=== PATIENT | male | born 1985 | race Caucasian/White ===

== ENCOUNTER 2019-06-18 05:54 | Emergency (ER) | payer BC, OTHER ==
[~2019-06-18] VITALS: Ht 193 cm; Wt 108.8 kg
--- NOTE | 2019-06-18 06:09 | ED GU-Male ---
General Stated Complaint: LEFT SIDE & LEFT TESTICLE PAIN X 2 DAYS Source: patient History of Present Illness Date Seen by Provider: Jun 18, 2019 Time Seen by Provider: 06:04 Initial Comments 34-year-old male presents with pain in his left lower side/abdomen along with pain down to his left testicle. Pain is intermittent on and off for the last testicle for the last couple days. He also has a pain in the left lower quadrant. He denies any fevers or chills. He denies any dysuria. He feels like he was "kicked in the testicle" there is no swelling. He did have some nausea this morning. He reports it has a pain in his testicle and lower abdomen he cannot get comfortable. Allergies and Home Medications Allergies Coded Allergies: promethazine (Verified Allergy, Severe, Anaphylaxis, 06/18/19) Penicillins (Verified Allergy, Unknown, Anaphylaxis, 06/18/19) Home Medications Hydrocodone/Acetaminophen 1 Each Tablet, 1 TAB PO Q6H Prescribed by: CHETAN ALBERTS on 06/18/19 0845 Metoclopramide HCl 10 Mg Tablet, 10 MG PO Q8H Prescribed by: CHETAN ALBERTS on 06/18/19 0843 Sulfamethoxazole/Trimethoprim 1 Each Tablet, 1 EACH PO BID Prescribed by: CHETAN ALBERTS on 06/18/19 0843 Tamsulosin HCl 0.4 Mg Cap, 0.4 MG PO DAILY Prescribed by: CHETAN ALBERTS on 06/18/19 0843 Patient Home Medication List Home Medication List Reviewed: Yes Review of Systems Review of Systems Constitutional: No chills, No fever EENTM: no symptoms reported Respiratory: no symptoms reported Gastrointestinal: abdominal pain (LLQ), nausea Genitourinary: see HPI Past Ogjtccn-Pmlequ-Bngqsz Hx Past Med/Social Hx: Reviewed Nursing Past Med/Soc Hx Patient Social History Recent Foreign Travel: No Contact w/Someone Who Travel: No Physical Exam Vital Signs Vital Signs - First Documented 06/18/19 06/18/19 06:00 08:55 Temp 36.4 Pulse 74 Resp 20 B/P (MAP) 145/100 (115) Pulse Ox 98 O2 Delivery Room Air Capillary Refill : Height, Weight, BMI Height: '" Weight: lbs. oz. 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, alert, normal mood/affect, oriented x 3 Progress/Results/Core Measures Suspected Sepsis SIRS Temperature: Pulse: Respiratory Rate: Blood Pressure / Mean: Results/Orders Lab Results Laboratory Tests Test 06/18/19 06:15 Range/Units Urine Color YELLOW Urine Clarity CLEAR Urine pH 5.5 5-9 Urine Specific [place] >=1.030 1.016-1.022 Urine Protein NEGATIVE NEGATIVE Urine Glucose (UA) NEGATIVE NEGATIVE Urine Ketones NEGATIVE NEGATIVE Urine Nitrite NEGATIVE NEGATIVE Urine Bilirubin NEGATIVE NEGATIVE Urine Urobilinogen 0.2 < = 1.0 MG/DL Urine Leukocyte Esterase NEGATIVE NEGATIVE Urine RBC (Auto) 3+ H NEGATIVE Urine RBC 10-25 H /HPF Urine WBC NONE /HPF Urine Crystals NONE /LPF Urine Bacteria NEGATIVE /HPF Urine Casts NONE /LPF Urine Mucus SMALL H /LPF Urine Culture Indicated NO My Orders Orders - CHETAN ALBERTS L DO Us Scrotum (Testicle) [id number] (06/18/19 06:12) Ua Culture If Indicated (06/18/19 06:12) Ondansetron Injection (Zofran Injectio (06/18/19 06:15) Ns Iv 1000 Ml (Sodium Chloride 0.9%) (06/18/19 06:12) Ed Iv/Invasive Line Start (06/18/19 06:12) Ketorolac Injection (Toradol Injection) (06/18/19 06:12) Abdomen/Kub 1view (06/18/19 06:54) Ct Abd/Pelvis Wo(Kidney Stone) (06/18/19 07:42) Metoclopramide Injection (Reglan Injecti (06/18/19 08:07) Medications Given in ED Current Medications Medications Dose Ordered Sig/Devang Route Start Time Stop Time Status Last Admin Dose Admin Ondansetron HCl 4 mg ONCE ONCE IVP 06/18/19 06:15 06/18/19 06:16 DC 06/18/19 06:31 4 MG Vital Signs/I&O 06/18/19 06/18/19 06:00 08:55 Temp 36.4 Pulse 74 77 Resp 20 16 B/P (MAP) 145/100 (115) 138/76 Pulse Ox 98 O2 Delivery Room Air Room Air Capillary Refill : Progress Note : Time: 11:10 Progress Note Patient with 3 mm kidney stone. I will start him on Flomax, Bactrim along with some pain and nausea medication. I recommended he all Dr. Valdez's office upon discharge to arrange a follow-up time and a recheck of symptoms. Patient is stable and will be discharged home in stable condition Diagnostic Imaging Comments NAME: CONY DAVALOS [facility] REC#: [id number] PT STATUS: REG ER : 1985 PHYSICIAN: CHETAN ALBERTS DO ADMIT DATE: 06/18/19/ER Draft Date of Exam:06/18/19 CT ABD/PELVIS WO(KIDNEY STONE) EXAMINATION: CT Abdomen Pelvis without contrast. TECHNIQUE: Multiple contiguous axial images were obtained through the abdomen and pelvis without the use of intravenous contrast. All CT scans use one or more of the following dose optimizing techniques: automated exposure control, MA and/or KvP adjustment based on a patient size and exam type, or iterative reconstruction. HISTORY: Flank pain. COMPARISON: None available. FINDINGS: Limited views of the lower thorax are unremarkable. The liver is normal without focal lesion. There is no biliary ductal dilation. Gallbladder is normal. Pancreas is normal. Spleen is normal. Adrenal glands are normal. There is a 3 mm obstructing stone in the distal left ureter with mild left-sided hydroureteronephrosis and perinephric and periureteral stranding. There are three additional nonobstructing left renal stones measuring up to 5 mm. The right kidney is normal without stones or hydronephrosis. No suspicious renal lesions are seen. Urinary bladder is normal. Visualized bowel is normal in caliber without obstruction or inflammation. No free fluid or air. No abdominal or pelvic lymphadenopathy. Aorta is normal in caliber without aneurysm. There are no suspicious osseus lesions. IMPRESSION: 1. Obstructing distal left ureteral stone measuring 3 mm with mild left hydroureteronephrosis. 2. Additional nonobstructing left renal stones measuring up to 5 mm . NAME: CONY DAVALOS [facility] REC#: [id number] PT STATUS: REG ER : 1985 PHYSICIAN: CHETAN ALBERTS DO ADMIT DATE: 06/18/19/ER Signed Date of Exam:06/18/19 US SCROTUM (Testicle) [id number] INDICATION: Left-sided testicular and groin pain x2 days. TECHNIQUE: Real-time grayscale sonographic imaging and color vascular evaluation of the scrotum. CORRELATION STUDY: None FINDINGS: RIGHT TESTICLE: 5.1 x 2.7 x 3.2 cm. LEFT TESTICLE: 5.4 x 2.7 x 3.3 cm. The testicles are in normal location and demonstrate homogeneous echotexture. There is vascular flow to the testicles. The epididymides appear unremarkable. Small left-sided hydrocele. No definitive abnormal left inguinal region hernia defect IMPRESSION: 1. Generally unremarkable appearing scrotal ultrasound examination, apart from small left-sided hydrocele. Departure Impression Primary Impression: Left ureteral stone Disposition: HOME, SELF-CARE Condition: Stable Departure-Patient Inst. Referrals: NO,LOCAL PHYSICIAN (PCP) Primary Care Physician YASIR BELL MD Please call upon discharge for follow-up of symptoms Patient Instructions: How to Strain Your Urine, Renal Colic (DC) Add. Discharge Instructions: Please call urologist office upon discharge for an appointment time for follow- up Scripts Hydrocodone/Acetaminophen ([place] 5-325 Tablet) 1 Each Tablet 1 TAB PO Q6H for Pain MDD 10 TABS, #10 TAB Prov: CHETAN ALBERTS DO 06/18/19 Metoclopramide HCl (Reglan) 10 Mg Tablet 10 MG PO Q8H for Nausea/Vomiting, #14 TAB Prov: CHETAN ALBERTS DO 06/18/19 Tamsulosin HCl (Flomax) 0.4 Mg Cap 0.4 MG PO DAILY, #14 CAP Prov: CHETAN ALBERTS DO 06/18/19 Sulfamethoxazole/Trimethoprim (Bactrim Ds Tablet) 1 Each Tablet 1 EACH PO BID, #14 TAB Prov: CHETAN ALBERTS DO 06/18/19 CHETAN ALBERTS DO Jun 18, 2019 06:09
[2019-06-18] MEDS ORDERED: KETOROLAC 30 MG/ML VIAL IVP STA (06:12)
[2019-06-18] MEDS ORDERED: NS IV 1000 ML 1,000 ML IV STA (06:12)
[2019-06-18] MEDS ORDERED: ONDANSETRON 4 MG/2 ML (SDV) Z0FRAN IVP ONE (06:15)
[2019-06-18 07:02] LABS: BILIRUBIN,URINE NEGATIVE (NEGATIVE); CLARITY,URINE CLEAR; COLOR,URINE YELLOW; GLUCOSE, URINE (UA) NEGATIVE (NEGATIVE); KETONES,URINE NEGATIVE (NEGATIVE); LEUKOCYTE ESTERASE ,URINE NEGATIVE (NEGATIVE); NITRITE,URINE NEGATIVE (NEGATIVE); PH,URINE 5.5 (5-9); PROTEIN,URINE NEGATIVE (NEGATIVE)
[2019-06-18 07:40] LABS: BACTERIA,URINE NEGATIVE /HPF
[2019-06-18] MEDS ORDERED: METOCLOPRAMIDE INJ 10 MG/2 ML (REGLAN) IVP STA (08:07)
--- NOTE | 2019-06-18 08:07 | NUR ---
PT COMPLAINS OF NAUSEA. DR NOTIFIED.
--- NOTE | 2019-06-18 08:14 | Diagnostic Imaging Report ---
EXAMINATION: CT Abdomen Pelvis without contrast. TECHNIQUE: Multiple contiguous axial images were obtained through the abdomen and pelvis without the use of intravenous contrast. All CT scans use one or more of the following dose optimizing techniques: automated exposure control, MA and/or KvP adjustment based on a patient size and exam type, or iterative reconstruction. HISTORY: Flank pain. COMPARISON: None available. FINDINGS: Limited views of the lower thorax are unremarkable. The liver is normal without focal lesion. There is no biliary ductal dilation. Gallbladder is normal. Pancreas is normal. Spleen is normal. Adrenal glands are normal. There is a 3 mm obstructing stone in the distal left ureter with mild left-sided hydroureteronephrosis and perinephric and periureteral stranding. There are three additional nonobstructing left renal stones measuring up to 5 mm. The right kidney is normal without stones or hydronephrosis. No suspicious renal lesions are seen. Urinary bladder is normal. Visualized bowel is normal in caliber without obstruction or inflammation. No free fluid or air. No abdominal or pelvic lymphadenopathy. Aorta is normal in caliber without aneurysm. There are no suspicious osseus lesions. IMPRESSION: 1. Obstructing distal left ureteral stone measuring 3 mm with mild left hydroureteronephrosis. 2. Additional nonobstructing left renal stones measuring up to 5 mm. Dictated by: Dictated on workstation # [id number]
--- NOTE | 2019-06-18 08:15 | Diagnostic Imaging Report ---
INDICATION: Left-sided testicular and groin pain x2 days. TECHNIQUE: Real-time grayscale sonographic imaging and color vascular evaluation of the scrotum. CORRELATION STUDY: None FINDINGS: RIGHT TESTICLE: 5.1 x 2.7 x 3.2 cm. LEFT TESTICLE: 5.4 x 2.7 x 3.3 cm. The testicles are in normal location and demonstrate homogeneous echotexture. There is vascular flow to the testicles. The epididymides appear unremarkable. Small left-sided hydrocele. No definitive abnormal left inguinal region hernia defect IMPRESSION: 1. Generally unremarkable appearing scrotal ultrasound examination, apart from small left-sided hydrocele. Dictated by: Dictated on workstation # [id number]
--- NOTE | 2019-06-18 08:18 | Diagnostic Imaging Report ---
INDICATION: Left testicle pain starting 2 days ago, now with left lower sided abdominal pain. TECHNIQUE: 2 supine view of the abdomen at 8:01 AM CORRELATION STUDY: None FINDINGS: There are at least 3 small calcifications superimposed over left renal silhouette. Largest over the inferior pole at 3 mm. No definitive calcification over the right renal silhouette. There are several calcifications bilateral hemipelvis likely attributed to phleboliths. There is, however, a smaller, 2 to 3 mm calcification over the left mid sacrum. Mild amount of overlying bowel gas and stool is present. No findings to suggest underlying bowel obstruction. IMPRESSION: 1. Multiple calcifications projecting over the left renal silhouette suspect for potential nephrolithiasis. 2. Calcification in the pelvis likely largely phleboliths. There is, however, approximately 2 to 3 mm calcification over the left mid sacrum. While nonspecific, could potentially be in the expected course of the distal left ureter. Dictated by: Dictated on workstation # [id number]
--- NOTE | 2019-06-18 08:27 | NUR ---
IN TALKING TO PT AT THIS TIME.
[2019-06-18] MEDS ORDERED: SULF1TAB35 PO (08:43)
[2019-06-18] MEDS ORDERED: TMSL.4C PO (08:43)
[2019-06-18] MEDS ORDERED: METO-310 PO (08:43)
[2019-06-18] MEDS ORDERED: HYDR-4226 PO (08:45)
[2019-06-18 08:55] VITALS: BP 138/76
--- OUTSIDE RECORDS SUMMARY | 2019-06-23 05:33 | XMS REPORT | Continuity of Care Document ---
Author Organization Unknown Address Unknown Phone Unavailable Allergies Active Description Code Type Severity Reaction Onset Reported/Identified Relationship to Patient Clinical Status Yes Penicillins [id number] Drug Aller gy Severe Anaphylaxis 06/18/2019 Yes promethazine [id number] Drug Allergy Severe Anaphylaxis 06/18/2019 Yes Penicillins [id number] Drug Aller gy Unknown Anaphylaxis 06/18/2019 Medications There is no data. Problems There is no data. Procedures There is no data. Results Test Result Range Complete urinalysis with reflex to cultu re - 06/18/19 06:15 Urine color determination YELLOW NRG Urine clarity determination CLEAR NR G Urine pH measurement by test strip 5.5 5-9 Specific gravity of urine by test strip >= 1.016-1.022 Urine protein assay by test strip, semi-quantitative NEGATIVE NEGATIVE Urine glucose detection by automated test strip NE GATIVE NEGATIVE Erythrocytes detection in urine sediment by light micr oscopy 3+ NEGATIVE Urine ketones detection by automated test strip NE GATIVE NEGATIVE Urine nitrite detection by test strip NEGATIVE NEGATIVE Urine total bilirubin detection by test strip NEGA TIVE NEGATIVE Urine urobilinogen measurement by automated test strip (mass/volume) 0.2 mg/dL < = 1.0 Urine leukocyte esterase detection by dipstick NEG ATIVE NEGATIVE Automated urine sediment erythrocyte cou nt by microscopy (number/high power field) [HPF] NRG Automated urine sediment leukocyte count by microscopy (number/high power field) NONE NRG Bacteria detection in urine sediment by light microsco py NEGATIVE NRG Crystals detection in urine sediment by light microsco py NONE NRG Casts detection in urine sediment by light microscopy NONE NRG Mucus detection in urine sediment by light microscopy SMALL NRG Complete urinalysis with reflex to culture NO NRG Encounters ACCT No. Visit Date/Time Discharge Status Pt. Type Provider Facility Loc./Unit Complaint [id number] 06/18/2019 05:57:00 020 08:55:00 DIS Emergency [facility] ARTEM[facility] WAGGONERVOR Madeleine [facility] ER LEFT SIDE LEFT TESTIC LE PAIN X 2 DAYS
== END 2019-06-18 08:55 | disposition home or self-care (01) ==
LOC: ER 05:57
DX: N20.1 Calculus of ureter (principal); Z88.0 Allergy status to penicillin; Z88.8 Allergy status to other drugs, medicaments and biological substances
CPT/HCPCS: 74018; 74176; 76870; 81000

== ENCOUNTER 2019-08-15 11:43 | Outpatient (RCR) | payer BC ==
[2019-08-15 12:22] LABS: CALCIUM 9.2 MG/DL (8.5-10.1); CREATININE SERUM 1.43 MG/DL (0.60-1.30); PHOSPHORUS 3.3 MG/DL (2.3-4.7); POTASSIUM 3.9 MMOL/L (3.6-5.0); URIC ACID 5.8 MG/DL (2.6-7.2)
== END 2019-11-13 | disposition home or self-care (01) ==
LOC: LAB 11:43
PROVIDERS: ATTEND Urology
DX: N20.0 Calculus of kidney (principal); Z98.52 Vasectomy status
CPT/HCPCS: 36415; 80048; 82140; 82340; 82507; 82570; 83735; 83945; 83970; 83986; 84100; 84105; 84133; 84300; 84392; 84550; 84560; 88300

== ENCOUNTER → 2019-08-15 | Outpatient (CLI) | payer BC ==
[~2019-08-15] MED LIST: HYDR-4226 PO; METO-310 PO; SULF1TAB35 PO; TMSL.4C PO
--- NOTE | 2019-08-15 09:26 | Diagnostic Imaging Report ---
INDICATION: Left kidney stones. Time of exam: 9:25 AM Correlation is made with CT study performed earlier today as well as abdominal radiograph from 06/18/2019. Pelvic calcifications are noted consistent with phleboliths. The previously noted left ureteral calculus is no longer visualized. Nonobstructing calculi overlie the lower pole left kidney. Bowel gas pattern is unremarkable. IMPRESSION: Left renal calculi. No ureteral calculi are detected. Dictated by: Dictated on workstation # [id number]
--- NOTE | 2019-08-15 09:51 | Diagnostic Imaging Report ---
PROCEDURE: CT urinary tract, rule out kidney stone. TECHNIQUE: Multiple contiguous axial images were obtained through the abdomen and pelvis without the use of intravenous contrast. Auto Exposure Controls were utilized during the CT exam to meet ALARA standards for radiation dose reduction. INDICATION: Left-sided kidney stones. Correlation is made with prior CT from 06/18/2019. The lung bases are clear. The liver and gallbladder are unremarkable. No biliary duct dilatation is identified. Pancreas and spleen are unremarkable. No adrenal mass is detected. The right kidney is without calculi. Nonobstructing calculi left kidney again noted, largest in the lower pole measuring 4 mm. Previously noted distal left ureteral calculus is no longer visualized. No new ureteral calculi are seen. No bladder calculi are detected. There is no hydronephrosis. Aorta is non-aneurysmal. The small and large bowel loops are normal in caliber. No obstruction is seen. There appears to be diverticulosis of the sigmoid but no evidence of acute diverticulitis. Prostate is unremarkable. There is no free fluid or fluid collection identified. Bony structures are nonacute. IMPRESSION: 1. Nonobstructing left renal calculi. No ureteral calculi or hydronephrosis is detected. 2. Uncomplicated diverticulosis. Dictated by: Dictated on workstation # [id number]
== END ==
LOC: RAD 09:01
PROVIDERS: ATTEND Nurse Practitioner Family
DX: N20.0 Calculus of kidney (principal); N30.01 Acute cystitis with hematuria; R10.10 Upper abdominal pain, unspecified; K59.09 Other constipation; K57.30 Diverticulosis of large intestine without perforation or abscess without bleeding
CPT/HCPCS: 74018; 74176

== ENCOUNTER → 2022-02-18 | Outpatient (CLI) | payer BC ==
[~2022-02-18] MED LIST changes: -SULF1TAB35 PO; +SULF1TAB38 PO
--- NOTE | 2022-02-18 16:05 | Diagnostic Imaging Report ---
EXAMINATION: Abdomen 1 view. HISTORY: Renal stone. COMPARISON: 08/15/2019. FINDINGS: There are phleboliths in the pelvis. No calcifications are seen projecting over the kidneys or expected course of the ureters. No dilated bowel or free air. IMPRESSION: No calcifications projecting over the kidneys or ureters. Dictated by: Dictated on workstation # [id number]
== END ==
LOC: RAD 15:47
PROVIDERS: ATTEND Registered Nurse Critical Care Medicine
DX: R10.32 Left lower quadrant pain (principal); R34 Anuria and oliguria; R39.89 Other symptoms and signs involving the genitourinary system; Z87.442 Personal history of urinary calculi
CPT/HCPCS: 74018